=== PATIENT | female | born 1935 | race Caucasian/White ===

== ENCOUNTER → 2017-09-23 | Outpatient (CLI) | payer OTHER ==
[~2017-09-23] MED LIST: ACETAMINOPHEN325 M1 PO; ADVAIR 250-501 EACH INH; ADVIL100 M2 PO; AUGMENTIN 500-1 EACH PO; AZITHROMYCIN 2250 MG PO; COLACE100 MG PO; FOSAMAX 70 MG T70 MG PO; FOSAMAX5 MG PO; IBUPROFEN 200200 M1 PO; KEFLEX500 M1 PO; MICARDIS 20MG T20 M1 PO; MUCINEX600 MG PO; MULTIVITAMINS PO; NORCO 5-325 TA1 EACH PO; PREDNISONE 10 M10 MG PO; PROAIR HFA8.5 GM INH; PROTONIX 20 MG20 MG PO; SPIRIVA INH; TUSSIN400 MG PO; TYLENOL325 MG PO
== END ==
LOC: RAD 14:07
DX: Z12.31 Encounter for screening mammogram for malignant neoplasm of breast (principal)

== ENCOUNTER 2018-02-06 14:29 | Inpatient (IN) | payer OTHER ==
[~2018-02-06] VITALS: Ht 162.6 cm; Wt 49.9 kg
--- NOTE | ~2018-02-06 | HC ---
[facility] [place] [address] CONSULTATION Name: RICKEY PRESTON Garima Room #: 422-P [facility] IN .R.#: [id number] Admission: 02/06/18 Attend Phys: Jon Guadarrama MD Discharge: Date of : 34 Report #: [id number] THIS REPORT FOR: //name// CC: Jon Siu DATE OF SERVICE: 02/09/2018 HISTORY OF PRESENT ILLNESS: The patient is an 82-year-old white female who was admitted to [facility] after an episode of tripping and had a couple of falls. She was having problems with increased shortness of breath and a mild cough. She has a premorbid history of COPD for the last 10 years and has been using inhalers. She was evaluated by Pulmonary Medicine, noted to have central lobular emphysema, hypercapnic respiratory failure with bilateral lower lobe scarring and fibrosis along with concern regarding aspiration. She has been seen by speech therapy and they have her on a soft diet with nectar-thickened liquids. She is noted to have hnzy-xu-csgykhms pharyngeal dysphagia. She also has acute renal insufficiency along with acute respiratory failure. We are seeing her in rehabilitation medicine consultation. She has been placed on Solu-Medrol as well as IV antibiotics. PAST MEDICAL HISTORY: Includes appendectomy, arthritis, COPD, hypertension, gastric ulcer in 1990, past history of tobacco abuse, quitting in 2007; and GERD, osteoporosis. She had a right total hip replacement in 2013 and a right periprosthetic femur fracture with revision in 10/08/2013. HABITS: Noted above. Former smoker. No history of alcohol abuse. MEDICATIONS: Please see the full medication listing. These medications include her vitamins, herbals, and supplements. ALLERGIES: CODEINE. SOCIAL HISTORY: Lives in a house with her , 4 steps in. She has a walker and a cane; although, she typically did not utilize them. REVIEW OF SYSTEMS: No current complaints of chest pain, shortness of breath, or abdominal discomfort. PHYSICAL EXAMINATION: GENERAL: An 82-year-old pleasant, thin white female in no obvious distress. VITAL SIGNS: Last recorded temperature is 98.3, pulse 81, respirations 16, and blood pressure 112/63. NEUROLOGIC: She is alert and pleasant. She does follow basic 1 step commands. She is currently on 3 liters nasal cannula. Facies are symmetric. She has functional range of motion of both upper extremities with strength grade 4-/5. [address] [address] CONSULTATION Name: RICKEY PRESTON Room #: 422-P [facility] IN .#: [id number] Admission: 02/06/18 Attend Phys: Jon Guadarrama MD Discharge: Date of : 34 Report #: [id number] DTRs are trace to 1. In the lower extremities, there is no focal calf swelling, functional range of motion with strength grade 3+/5. DTRs are trace to 1. She is sit to stand with mod assist. She did ambulate 5 feet handheld assistance. She does have frequent losses of balance. ASSESSMENT: An 82-year-old white female with the following problem list: 1. Pulmonary rehabilitation. 2. Medical complexity with generalized debilitation. 3. Acute hypoxic respiratory failure. 4. Dysphagia, currently on nectar-thickened liquids. 5. Central lobular emphysema with hypercapnic respiratory failure. 6. Bilateral lower lobe scarring with fibrosis. 7. Acute renal insufficiency. 8. Question of urinary tract infection. 9. Leukocytosis. 10. Hypertension. 11. Remote history of tobacco abuse. PLAN: We are assessing the patient for a possible acute in-hospital inpatient rehabilitation stay. We will be glad to follow along with you. <ELECTRONICALLY SIGNED> By: Gerard Arambula MD 02/10/18 1440 1330 0259 Gerard Arambula MD /PMT
--- NOTE | ~2018-02-06 | HC ---
[facility] [place] [address] CONSULTATION Name: RICKEY PRESTON Room #: 422-P [facility] IN M.R.#: [id number] Admission: 02/06/18 Attend Phys: Jon Guadarrama MD Discharge: Date of : 34 Report #: [id number] THIS REPORT FOR: //name// CC: Jon Siu DATE OF SERVICE: 02/06/2018 REASON FOR CONSULTATION: COPD. IMPRESSION: 1. Central lobular emphysema. 2. Bilateral lower lobe scarring/fibrosis. 3. Possible urinary tract infection. 4. Weakness. 5. Question aspiration. 6. Leukocytosis. 7. Found to have low oxygen saturation. No ABG to correlate yet. PLAN: Aerosol therapy, incentive spirometry as D-dimer is elevated, but likely secondary more to falls than a definite pulmonary embolus. We will do venous Dopplers and VQ scan in the a.m. I did not hear any wheezing. We will hold off on corticosteroids. HISTORY OF PRESENT ILLNESS: An 82-year-old female who was brought in by because of recurrent falls and weakness. The patient denies shortness of breath. She does complain of occasional cough. No definite wheezing. Positive dyspnea on exertion. PAST MEDICAL HISTORY: Include chronic low back pain, COPD, dementia, hypertension, GERD and osteopenia. PAST SURGICAL HISTORY: Included appendectomy, cataract extraction and total hip arthroplasty by Dr. Lynn. FAMILY HISTORY: Heart disease. SOCIAL HISTORY: Positive tobacco quitting approximately 15 years ago. MEDICATIONS: Appear to have included Advair, alendronate, Namenda, ProAir and Spiriva. REVIEW OF SYSTEMS: The patient denies any dysuria. Please see above. She denies any chest pain or palpitations. She feels she is falling because of inattention. GERD, gastric ulcer. [facility] [address] [place] [address] CONSULTATION Name: RICKEY PRESTON Garima Room #: 422-P [facility] IN [facility]#: [id number] Admission: 02/06/18 Attend Phys: Jon Guadarrama MD Discharge: Date of : 34 Report #: [id number] LABORATORY DATA: BUN 36, creatinine 1.2 and GFR was 43. Troponin was less than 0.04. White count 17.6, hemoglobin 14.7, platelets 345 and bands 2. UA showed greater than 30 bacteria. REVIEW OF SYSTEMS: No fever, chills or night sweats. No chest pain or palpitation. No nausea or vomiting. PHYSICAL EXAMINATION: GENERAL: Very pleasant, lying in bed, eating. We discussed being upright when she eats. VITAL SIGNS: Temperature 97.5, pulse 98, respirations 16, BP 152/73 and on 1 liter sat was 94%. EYES: Negative icterus. NECK: Trachea midline. LUNGS: Showed no wheeze or rhonchi. HEART: Regular. Tender right chest. ABDOMEN: Bowel sounds present. EXTREMITIES: Showed no edema. Bruising noted. I did not see an obvious left upper lobe nodule that was seen on prior chest. We will follow closely with you. <ELECTRONICALLY SIGNED> By: Don Kay MD 02/08/18 1747 16 0648 Don Kay MD /nt
--- NOTE | ~2018-02-06 | EKG ---
[place] [address] [place] [address] ELECTROCARDIOGRAM REPORT Name: MOHANRICKEY L Room #: [facility]#: [id number] Admission: 02/06/18 Attend Phys: Discharge: Date of : 34 Report #: [id number] THIS REPORT FOR: //name// [facility] ED Test Date: 2018-02-06 Test Time: 15:10:30 Pat Name: RICKEY PRESTON Department: Room: Gender: F [employer]: STEVE : 1935 Requested By: Austin Mata Order Number: [id number] MD: Yg Ornelas Measurements Intervals [place] Rate: 101 P: 71 WA: 164 QRS: -60 QRSD: 106 T: 73 QT: 353 QTc: 458 Interpretive Statements Sinus tachycardia Atrial premature complexes Left anterior fascicular block Poor R wave progression Compared to ECG 09/13/2013 11:30:59 Ventricular premature complex(es) no longer present Electronically Signed On 02-06-2018 15:52:14 CDT by Yg Ornelas [email or web address] <ELECTRONICALLY SIGNED> By: Yg Ornelas MD, [facility] 02/06/18 1552 1510 09 Yg Ornelas MD, [facility] /EPI
[~2018-02-06 14:29] MED LIST changes: -AUGMENTIN 500-1 EACH PO; -AZITHROMYCIN 2250 MG PO; -COLACE100 MG PO; -KEFLEX500 M1 PO; -MUCINEX600 MG PO; -NORCO 5-325 TA1 EACH PO; -PREDNISONE 10 M10 MG PO; -PROTONIX 20 MG20 MG PO; -TYLENOL325 MG PO
[2018-02-06 14:30] VITALS: BP 131/59
[2018-02-06 15:34] LABS: HEMATOCRIT 44.1 % (37.0-47.0); HEMOGLOBIN 14.7 gm/dL (12.0-15.0); MCH 31.1 pg (26.0-34.0); MCHC 33.4 g/dL (28.0-37.0); PLATELET COUNT 345 thou/uL (150-400); RBC 4.74 mil/uL (4.20-5.00); RDW 14.4 % (10.5-14.5); WBC 17.6 thou/uL (4.0-11.0)
[2018-02-06 15:42] LABS: ANION GAP 7 mmol/L (7-16); BUN 36 mg/dL (7-18); CALCIUM 8.7 mg/dL (8.5-10.1); CHLORIDE 99 mmol/L (98-107); CO2 28 mmol/L (21-32); CREATININE 1.2 mg/dL (0.6-1.0); GLUCOSE 132 mg/dL (74-106); POTASSIUM 4.5 mmol/L (3.5-5.1); SODIUM 134 mmol/L (136-145)
[2018-02-06 15:53] LABS: ALBUMIN 2.9 g/dL (3.4-5.0); SGOT 18 U/L (15-37); SGPT 13 U/L (30-65); TOTAL BILIRUBIN 0.6 mg/dL (<0.1-1.0); TOTAL PROTEIN 7.6 g/dL (6.4-8.2); TROPONIN-I < 0.04 ng/mL (<0.06)
[2018-02-06 15:55] LABS: ABSOLUTE NEUTROPHILS 15.8 thou/uL (1.4-8.2)
[2018-02-06 17:06] LABS: URINE BLOOD NEGATIVE (Negative); URINE COLOR YELLOW; URINE GLUCOSE-RANDOM* NEGATIVE (Negative); URINE KETONES TRACE (Negative); URINE LEUKOCYTES NEGATIVE (Negative); URINE NITRITE NEGATIVE (Negative); URINE PROTEIN (DIPSTICK) 2+ (Negative); URINE SPECIFIC GRAVITY 1.025 (1.005-1.035)
[2018-02-06 17:08] LABS: URINE BILIRUBIN NEGATIVE (Negative); URINE CLARITY SL HAZY
[2018-02-06 17:18] LABS: BACTERIA >30 Many /HPF (None Seen); CASTS None Seen /LPF (None Seen); SQUAMOUS 4-10 Moderate /LPF (0-3); URINE RBC None Seen /HPF (0-2); URINE WBC 0-5 Rare /HPF (0-5)
[2018-02-06 17:19] LABS: AMORPHOUS URATES Many /LPF (None Seen)
[2018-02-06 17:49] VITALS: BP 103/79
[2018-02-06 19:33] VITALS: BP 152/73
[2018-02-06 20:00] VITALS: BP 115/63
[2018-02-07 04:00] VITALS: BP 119/58
[2018-02-07 05:41] LABS: HEMATOCRIT 39.1 % (37.0-47.0); HEMOGLOBIN 13.2 gm/dL (12.0-15.0); MCH 31.3 pg (26.0-34.0); MCHC 33.7 g/dL (28.0-37.0); MCV 92.7 fL (80.0-100.0); RBC 4.22 mil/uL (4.20-5.00); RDW 14.9 % (10.5-14.5); WBC 13.4 thou/uL (4.0-11.0)
[2018-02-07 05:44] LABS: CALCIUM 7.9 mg/dL (8.5-10.1); CREATININE 1.1 mg/dL (0.6-1.0); POTASSIUM 4.5 mmol/L (3.5-5.1)
[2018-02-07 07:34] VITALS: BP 116/65
[2018-02-07 11:56] LABS: BE(vivo) 1.2 mmol/L (-2 to +3); HCO3 27.2 mmol/L (22.0-26.0); PCO2 48.3 mmHg (35.0-45.0); PO2 72.9 mmHg (80.0-100.0); pH 7.368 (7.360-7.450); sO2 94.1 % (92.0-98.0)
[2018-02-07 15:45] VITALS: BP 95/80
[2018-02-07 19:20] VITALS: BP 101/60
[2018-02-08 03:40] VITALS: BP 117/50
[2018-02-08 04:50] LABS: HEMATOCRIT 33.9 % (37.0-47.0); HEMOGLOBIN 11.4 gm/dL (12.0-15.0); MCH 31.6 pg (26.0-34.0); MCHC 33.7 g/dL (28.0-37.0); MCV 93.7 fL (80.0-100.0); RBC 3.61 mil/uL (4.20-5.00); RDW 14.8 % (10.5-14.5); WBC 7.5 thou/uL (4.0-11.0)
[2018-02-08 05:02] LABS: CALCIUM 7.8 mg/dL (8.5-10.1); CREATININE 0.9 mg/dL (0.6-1.0); POTASSIUM 4.1 mmol/L (3.5-5.1)
[2018-02-08 15:38] VITALS: BP 101/63
[2018-02-08 19:50] VITALS: BP 133/81
[2018-02-09 03:50] VITALS: BP 109/63
[2018-02-09 08:30] VITALS: BP 112/63
[2018-02-09 15:50] VITALS: BP 93/70
[2018-02-09 20:20] VITALS: BP 95/55
[2018-02-09 23:50] VITALS: BP 129/71
[2018-02-10 04:21] VITALS: BP 136/65
[2018-02-10] MEDS ORDERED: PREDNISONE 10 M10 MG PO (08:41)
[2018-02-10] MEDS ORDERED: KEFLEX500 M1 PO (08:42)
[2018-02-10] MEDS ORDERED: AZITHROMYCIN 2250 MG PO (08:42)
[2018-02-10 09:07] VITALS: BP 86/70
== END 2018-02-10 14:30 | DRG 177 ==
LOC: ER 14:29 → EROBS 17:29 → 4E 17:29
PROVIDERS: Hospitalist; Internal Medicine Pulmonary Disease; Physician Assistant
DX: J69.0 Pneumonitis due to inhalation of food and vomit (principal); J96.01 Acute respiratory failure with hypoxia; J96.02 Acute respiratory failure with hypercapnia; J44.1 Chronic obstructive pulmonary disease with (acute) exacerbation; N17.9 Acute kidney failure, unspecified; N39.0 Urinary tract infection, site not specified; M19.90 Unspecified osteoarthritis, unspecified site; I10 Essential (primary) hypertension; K21.9 Gastro-esophageal reflux disease without esophagitis; M81.0 Age-related osteoporosis without current pathological fracture; J84.10 Pulmonary fibrosis, unspecified; F03.90 Unspecified dementia, unspecified severity, without behavioral disturbance, psychotic disturbance, mood disturbance, and anxiety; Z96.641 Presence of right artificial hip joint; R29.6 Repeated falls; W01.0XXA Fall on same level from slipping, tripping and stumbling without subsequent striking against object, initial encounter; M62.84 Sarcopenia; Y93.89 Activity, other specified; Y92.009 Unspecified place in unspecified non-institutional (private) residence as the place of occurrence of the external cause; Y99.8 Other external cause status; Z87.19 Personal history of other diseases of the digestive system; Z87.81 Personal history of (healed) traumatic fracture; Z87.891 Personal history of nicotine dependence; Z90.49 Acquired absence of other specified parts of digestive tract; Z79.51 Long term (current) use of inhaled steroids; Z79.899 Other long term (current) drug therapy; Z88.5 Allergy status to narcotic agent; Z82.49 Family history of ischemic heart disease and other diseases of the circulatory system
CPT/HCPCS: 10183

== ENCOUNTER 2018-02-10 13:08 | Inpatient (IN) | payer OTHER ==
[~2018-02-10] VITALS: Ht 162.6 cm; Wt 49.4 kg
--- NOTE | ~2018-02-10 | PATH ---
[facility] [address] [place] [address] PATHOLOGY RPT PROCEDURE Name: RICKEY PRESTON Room #: 509-P [facility] IN .R.#: [id number] Admission: 02/10/18 Date of : 34 Discharge: 02/24/18 Report #: [id number] Path Case #: [id number] Note [facility] Accession Number: [id number] TESTS RESULT FLAG UNITS REF RANGE LAB Clinician Provided Cytology Information No. of containers..01 Other (Miscellaneous) Source: SPUTUM DIAGNOSIS: 02 SPUTUM NEGATIVE FOR MALIGNANT CELLS. PULMONARY MACROPHAGES PRESENT, INDICATIVE OF LOWER RESPIRATORY TRACT SAMPLING. SCANT CELLULARITY. FUNGAL ORGANISMS MORPHOLOGICALLY CONSISTENT WITH "ALEXANDRA" SPECIES ARE PRESENT. Signed out by: 02 Kelsey Alicia MD, Pathologist NPI- [id number] Performed by: 03 Zeinab Ku, Sales And Marketing Representative ([facility]) Gross description: 01 1 ML, YELLOW, THICK /LCS FLAG LEGEND: L-Low Normal,H-High Normal,LL-Alert Low,HH-Alert High <-Panic Low,>-Panic High,A-Abnormal,AA-Critical Abnormal Performed at: [address] [place] [address] Ronaldo Mckeon MD, [address] [address] Kelsey Alicia MD, 03 [facility] [address] [address] Charanjit Wood MD, Performed at: [address], [place], [place] [id number] MD Ronaldo Mckeon MD Phone: [phone]
--- NOTE | ~2018-02-10 | HC ---
[facility] [place] [address] CONSULTATION Name: RICKEY PRESTON Room #: 509-P [facility] IN .R.#: [id number] Admission: 02/10/18 Attend Phys: Gerard Arambula MD Discharge: Date of : 34 Report #: [id number] THIS REPORT FOR: //name// CC: Gerard Siu DATE OF SERVICE: 02/14/2018 NEUROBEHAVIORAL STATUS EXAMINATION ATTENDING PHYSICIAN: Gerard Arambula M.D. OLDER ADULT SOCIAL WORK SPECIALIST: Jacky De Los Santos, PhD CLINICAL PRESENTATION: The patient is an 82-year-old female admitted to the [facility] Rehabilitation Unit for comprehensive inpatient rehabilitation program to improve functional mobility, activities of daily living and self-care and mental status secondary to deficits from acute hypoxic respiratory failure and requirement of increased pulmonary rehabilitation. Her diagnoses on admission include medical complexity and generalized debilitation, dysphagia, central lobular emphysema with hypercapnic respiratory failure, bilateral lower lobe scarring with fibrosis, acute renal insufficiency, urinary tract infection, leukocytosis, hypertension and remote history of tobacco abuse. The patient is reported to have been at home with her , son and grandson when her behavior deteriorated to the extent of diminished activity and severe fatigue. Prior to this most recent admission, she had been living at home with increasing assistance from her family. The patient was unable to manage her medication and had not driven for 4 years. Her behavior is described as having deteriorated significantly following a hip surgery about 4 years ago. The patient is described as requiring assistance for personal and instrumental activities of daily living. She is lacking insight into the severity of her deficits. Problems in her home have included poor ability to manage ADL's. She has not been showering and has been requiring increasing encouragement to maintain activity and personal hygiene. Her grandson indicates that while her son is in the home, he has a longstanding history of substance abuse and is very isolative. The primary help he provides is meal preparation and the availability of physical assistance if necessary; however, the son is not reported to be actively involved in problem solving the current extent of supervision and the current problems they are having in the management of her behavior. The patient is a college graduate with a degree in chemistry. 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 She had two brothers, one sister and two children. As indicated, her son is living with her in [place] and the other is living in [place]. Her primary support is provided by grandson and granddaughter. TECHNIQUES UTILIZED: Clinical interview, review of medical records, staff consultation and behavioral observation, mini mental status exam 2 standard version, clock drawing and category fluency assessment and an interview with grandson and . EXAMINATION FINDINGS: The patient was alert and cooperative with the assessment. She lacks insight into her deficits. She does not report difficulty with sleep, appetite, memory or word finding. She also denies depression and anxiety. Her grandson indicates that the patient will have many evenings where she is up throughout the night and does not sleep. Additionally, her appetite is described as very poor. Deficits in memory, planning and problem solving are also noted. Her behavior has become increasingly sedentary with very poor hygiene and personal grooming. Her performance on the MMSE 2 brief version is extremely low with a raw score of 10/16. She was 3/3 for initial registration and 4/5 for orientation to time, 3/[address] and 0/3 for immediate recall of 3 items after a brief time delay and distraction. She also utilized the orientation board to assist with general orientation to date content. Her performance improved on the MMSE 2 standard version to a raw score of 23/30. She was 5/5 for serial sevens, 2/2 for naming, 1/1 for repetition and 3/3 for comprehension. She was able to read and follow a single command and write a sentence. The patient was unable to copy a simple geometric design. She obtained a raw score of 23/30, which is a T score of 32 and at the 4th percentile suggesting mild to moderate impairment. Category fluency was extremely low with a raw score 6, which is a T score of 20. The patient had mild difficulty with clock drawing in regard to hand placement. The patient is presenting with deficits in memory, general orientation, insight and judgment. Severe impairment in executive functioning along with depression are suggested. DIAGNOSTIC IMPRESSION: Major neurocognitive disorder (dementia), unspecified, with decreased insight and intermittent oppositional behavior -- extent to be determined, likely in the moderate to severe range. Unspecified depressive disorder. [facility] [address] [place] [address] CONSULTATION Name: RICKEY PRESTON Room #: 509-P [facility] IN M.R.#: [id number] Admission: 02/10/18 Attend Phys: Gerard Arambula MD Discharge: Date of : 34 Report #: [id number] RECOMMENDATIONS: The patient would benefit from the use of an antidepressant at bedtime that will assist with sleep and appetite, e.g., Remeron. Decreased insight into her deficits places her at an increased safety risk. Assistance will be needed for the management of medication, finances and nutrition. Increased assistance in the home may also be necessary upon her discharge. Her grandson indicates that the tends to minimize the severity of her deficits. Following her discharge, the patient may benefit from a workup for neurodegenerative disorder. Neuropsychological testing and Neurology consult is suggested. Thank you very much for allowing me to provide the consultation on this patient. <ELECTRONICALLY SIGNED> By: Jacky De Los Santos, PhD 02/15/18 1432 1500 24 Jacky De Los Santos, PhD /nt
--- NOTE | ~2018-02-10 | H ---
[facility] [place] [address] HISTORY AND PHYSICAL Name: RICKEY PRESTON Room #: 509-P [facility] IN M.R.#: [id number] Admission: 02/10/18 Attend Phys: Gerard Arambula MD Discharge: 02/24/18 Date of : 34 Report #: [id number] THIS REPORT FOR: //name// CC: Gerard Gomezmegan DATE OF SERVICE: 02/10/2018 HISTORY OF PRESENT ILLNESS: The patient is an 82-year-old white female who was originally admitted to [facility] on 02/06/2018, after an episode of tripping and had a couple of falls. She was noted to have problems with increased shortness of breath and a mild cough. She has a premorbid history of COPD for the last 10 years and had been using inhalers. She was evaluated by Pulmonary Medicine, noted to have central lobular emphysema, hypercapnic respiratory failure with bilateral lower lobe scarring and fibrosis along with concern regarding aspiration. She was seen by speech therapy and they initially placed on a soft diet with nectar thickened liquids. She is continuing on this diet at this time. She also was noted to have acute renal insufficiency along with acute respiratory failure. She was placed on IV Solu-Medrol as well as IV antibiotics. She has now been transferred for acute in-hospital inpatient rehabilitation. She has pulmonary rehabilitation needs with medical complexity with generalized debilitation. PAST MEDICAL HISTORY: Significant for an appendectomy, arthritis, COPD, hypertension, gastric ulcer in 1990. Past history of tobacco abuse, quitting in 2007, GERD, osteoporosis, right total hip replacement in 2013, and a right periprosthetic femur fracture with revision 10/08/2013. HABITS: Noted above. Former smoker. No history of alcohol abuse. MEDICATIONS: Please see the full medication listing. These medications also include her vitamins, herbals and supplements. ALLERGIES: CODEINE. SOCIAL HISTORY: Lives with her , house, 4 steps in. She has a walker and a cane, although she typically did not use them. She was not on nasal prong O2 premorbidly. REVIEW OF SYSTEMS: No current complaints of chest pain, no shortness of breath, abdominal discomfort. No focal extremity pain complaints. OBJECTIVE: GENERAL: An 82-year-old white female, in no obvious distress. VITAL SIGNS: Last recorded temperature is 97, pulse 100, respirations 20, blood pressure 158/71. [address] [address] HISTORY AND PHYSICAL Name: RICKEY PRESTON Room #: 509-P [facility] IN [facility]#: [id number] Admission: 02/10/18 Attend Phys: Gerard Arambula MD Discharge: 02/24/18 Date of : 34 Report #: [id number] HEAD, EYES, EARS, NOSE, AND THROAT: The patient is alert, pleasant. She is currently on nasal prong O2, 3 liters. She follows basic 1 step commands without difficulty. CHEST: Some decreased breath sounds diffusely. CARDIOVASCULAR: Regular rate and rhythm. ABDOMEN: Bowel sounds positive, nontender. GENITOURINARY AND RECTAL: Deferred. She is of slender build. EXTREMITIES: She has functional range of motion of both upper extremities. Strength is grade 4-/5. DTRs are trace to 1. In the lower extremities, there is no focal calf swelling, functional range of motion with strength grade 3+/5. DTRs are trace to 1. Functionally, she is transferring with min assist, gait, and mod assist short distances. ASSESSMENT: An 82-year-old white female with the following problem list: 1. Pulmonary rehabilitation. 2. Medical complexity with generalized debilitation. 3. Acute hypoxic respiratory failure. 4. Dysphagia, continuing on nectar thickened liquids. 5. Central lobular emphysema with hypercapnic respiratory failure. 6. Bilateral lower lobe scarring with fibrosis. 7. Acute renal insufficiency. 8. Question of urinary tract infection. 9. Leukocytosis. 10. Hypertension. 11. Remote history of tobacco abuse. PLAN: The patient is admitted for acute in-hospital inpatient rehabilitation. From a postadmission physician evaluation perspective, there are no relevant changes since the preadmission screening. Please see the above review of prior and current medical and functional conditions and comorbidities. Please see the patient's previous and current functional status. As far as risk of complications, the patient has multiple medical comorbidities as noted above. Initial plan of care involves the interdisciplinary acute inpatient rehabilitation program with goal of maximizing her functional independence, so that she can hopefully return back to her prior living situation. Measurable functional goals would be for her to become modified independent with transfers, mobility and ADLs, so that she can return back to the home setting. We are also having speech therapy evaluate regarding her swallowing with her dysphagia. She will have the interdisciplinary acute rehab team involved. Her prognosis is reasonably good with estimated length of stay probably at least 10 days to 2 weeks pending progress. Potential barriers would include her multiple medical comorbidities and decreased functional status. The patient meets diagnostic criteria for an acute in-hospital inpatient rehabilitation stay. She meets the medical necessity criteria and we will have the lifestyle consultant physicians continue to follow including Internal Medicine as well [address] [address] HISTORY AND PHYSICAL Name: RICKEY PRESTON Room #: 509-P [facility] IN .R.#: [id number] Admission: 02/10/18 Attend Phys: Gerard Arambula MD Discharge: 02/24/18 Date of : 34 Report #: [id number] as Pulmonary Medicine and geriatrics is involved. She does have the tolerance for an acute inpatient rehabilitation stay and has appropriate discharge goals back to the home setting. <ELECTRONICALLY SIGNED> By: Gerard Arambula MD 02/27/18 1453 0752 0933 Gerard Arambula MD /[facility]
--- NOTE | ~2018-02-10 | PLAN ---
[facility] [place] [address] REHAB UNIT PLAN OF CARE Name: RICKEY PRESTON Room #: 509-P [facility] IN M.R.#: [id number] Admission: 02/10/18 Attend Phys: Gerard Arambula MD Discharge: 02/24/18 Date of : 34 Report #: [id number] THIS REPORT FOR: //name// CC: Gerard Duggan [facility] DATE OF SERVICE: 02/13/2018 PROGRESS NOTE/OVERALL PLAN OF CARE SUBJECTIVE: The patient is seen back today in followup. She is in no distress. Last recorded temperature 36.9, pulse 89, respirations 18, blood pressure 165/83. She is pleasant. She is currently on 2 liters nasal cannula. Transfers are contact guard with gait min assist 150 feet with a front-wheeled walker. In occupational therapy, lower body dressing is min assist. In speech therapy, she is on a mechanical soft diet and is continuing on the nectar thickened liquids. ASSESSMENT: 1. Pulmonary rehabilitation. 2. Medical complexity with generalized debilitation. 3. Acute hypoxic respiratory failure. 4. Dysphagia, continuing on nectar thickened liquids. 5. Central lobular emphysema with hypercapnic respiratory failure. 6. Bilateral lower lobe scarring with fibrosis. 7. Acute renal insufficiency. 8. Question of urinary tract infection. 9. Leukocytosis. 10. Hypertension. PLAN: The overall plan of care is based on the preadmission screen, post-admission physician evaluation and information garnered from therapy assessments. 1. Estimated length of stay is probably around 10 days. 2. Medical prognosis is reasonably good. 3. Anticipated interventions include the interdisciplinary acute inpatient rehabilitation program with PT and OT, rehab nursing assisting regarding medication management, skin care prophylaxis, bowel and bladder issues and nursing education. Case management is involved as well as the interdisciplinary rehabilitation team. The cisco consultant physicians are involved as well. 4. Anticipated functional outcomes would be for the patient to ideally become modified independent at least at the walker level to get back home. She was not on oxygen premorbidly. 5. Discharge destination is to return back home with . 6. Expected therapy by discipline includes PT and OT and Speech 1 hour per day [address] [address] REHAB UNIT PLAN OF CARE Name: RICKEY PRESTON Room #: 509-P [facility] IN .R.#: [id number] Admission: 02/10/18 Attend Phys: Gerard Arambula MD Discharge: 02/24/18 Date of : 34 Report #: [id number] each 5 days a week throughout the duration of the acute inpatient rehabilitation stay. <ELECTRONICALLY SIGNED> By: Gerard Arambula MD 02/27/18 1515 [id number] Gerard Arambula MD /nt
--- NOTE | ~2018-02-10 | EKG ---
[address] [address] ELECTROCARDIOGRAM REPORT Name: RICKEY PRESTON Garima Room #: 509-P ADM IN M.R.#: [id number] Admission: 02/10/18 Attend Phys: Gerard Arambula MD Discharge: Date of : 34 Report #: [id number] THIS REPORT FOR: //name// [facility] Test Date: 2018-02-20 Test Time: 06:49:34 Pat Name: RICKEY PRESTON Department: Room: 509 Gender: F Twister Tender: MONICA : 1935 Requested By: Don Kay Order Number: [id number] MD: Yg Ornelas Measurements Intervals [place] Rate: 88 P: 61 NH: 159 QRS: -61 QRSD: 103 T: 63 QT: 366 QTc: 443 Interpretive Statements Sinus rhythm Atrial premature complex Left anterior fascicular block Anteroseptal infarct, old Baseline wander in lead(s) II,III,aVF Compared to ECG 02/06/2018 15:10:30 Sinus tachycardia no longer present Electronically Signed On 02-20-2018 8:34:10 CDT by Yg Ornelas [email or web address] <ELECTRONICALLY SIGNED> By: Yg Ornelas MD, [facility] 02/20/18 0834 0649 [id number] Yg Ornelas MD, [facility] /EPI
[~2018-02-10 13:08] MED LIST changes: +AZITHROMYCIN 2250 MG PO; +KEFLEX500 M1 PO; +PREDNISONE 10 M10 MG PO
[2018-02-10 16:00] VITALS: BP 172/81
[2018-02-10 19:43] VITALS: BP 158/71
[2018-02-11 04:14] LABS: HEMATOCRIT 32.4 % (37.0-47.0); HEMOGLOBIN 10.8 gm/dL (12.0-15.0); MCH 31.3 pg (26.0-34.0); MCHC 33.3 g/dL (28.0-37.0); RBC 3.45 mil/uL (4.20-5.00); RDW 14.8 % (10.5-14.5); WBC 8.5 thou/uL (4.0-11.0)
[2018-02-11 04:17] LABS: CALCIUM 8.1 mg/dL (8.5-10.1); CREATININE 1.1 mg/dL (0.6-1.0); POTASSIUM 4.6 mmol/L (3.5-5.1)
[2018-02-11 07:30] VITALS: BP 146/73
[2018-02-11 19:02] VITALS: BP 118/73
[2018-02-12 08:00] VITALS: BP 135/75
[2018-02-12 19:52] VITALS: BP 165/83
[2018-02-13 07:45] VITALS: BP 166/88
[2018-02-13 20:28] VITALS: BP 147/73
[2018-02-14 08:29] VITALS: BP 140/75
[2018-02-14 20:30] VITALS: BP 155/71
[2018-02-15 20:14] VITALS: BP 157/80
[2018-02-16 07:15] VITALS: BP 183/100
[2018-02-16 19:15] VITALS: BP 138/72
[2018-02-17 06:36] LABS: HEMATOCRIT 39.2 % (37.0-47.0); HEMOGLOBIN 13.1 gm/dL (12.0-15.0); MCHC 33.3 g/dL (28.0-37.0); PLATELET COUNT 352 thou/uL (150-400); RBC 4.21 mil/uL (4.20-5.00); RDW 15.3 % (10.5-14.5); WBC 6.6 thou/uL (4.0-11.0)
[2018-02-17 07:03] LABS: ANION GAP < 0 mmol/L (7-16); BUN 30 mg/dL (7-18); CALCIUM 8.5 mg/dL (8.5-10.1); CHLORIDE 102 mmol/L (98-107); CO2 38 mmol/L (21-32); CREATININE 0.9 mg/dL (0.6-1.0); GLUCOSE 114 mg/dL (74-106); MAGNESIUM 2.2 mg/dL (1.8-2.4); POTASSIUM 5.5 mmol/L (3.5-5.1); SODIUM 139 mmol/L (136-145)
[2018-02-17 07:20] VITALS: BP 147/64
[2018-02-17 07:27] LABS: ABSOLUTE NEUTROPHILS 5.3 thou/uL (1.4-8.2)
[2018-02-17 07:28] LABS: ANISOCYTOSIS 1+; POIKILOCYTOSIS SLIGHT
[2018-02-17 20:25] VITALS: BP 140/76
[2018-02-18 04:02] LABS: CALCIUM 7.7 mg/dL (8.5-10.1); CREATININE 1.1 mg/dL (0.6-1.0); POTASSIUM 4.7 mmol/L (3.5-5.1)
[2018-02-18 08:00] VITALS: BP 159/80
[2018-02-18 19:55] VITALS: BP 147/67
[2018-02-19 07:25] VITALS: BP 151/63
[2018-02-19 20:09] VITALS: BP 146/83
[2018-02-20 07:15] LABS: HEMATOCRIT 41.3 % (37.0-47.0); HEMOGLOBIN 13.6 gm/dL (12.0-15.0); MCH 31.2 pg (26.0-34.0); MCV 94.5 fL (80.0-100.0); PLATELET COUNT 336 thou/uL (150-400); RBC 4.37 mil/uL (4.20-5.00); RDW 15.6 % (10.5-14.5); WBC 12.8 thou/uL (4.0-11.0)
[2018-02-20 07:30] VITALS: BP 141/71
[2018-02-20 07:58] LABS: ALBUMIN 2.9 g/dL (3.4-5.0); ANION GAP 4 mmol/L (7-16); BUN 27 mg/dL (7-18); CALCIUM 8.2 mg/dL (8.5-10.1); CHLORIDE 101 mmol/L (98-107); CO2 34 mmol/L (21-32); CREATININE 0.7 mg/dL (0.6-1.0); GLUCOSE 121 mg/dL (74-106); POTASSIUM 4.1 mmol/L (3.5-5.1); SGOT 27 U/L (15-37); SGPT 44 U/L (30-65); SODIUM 139 mmol/L (136-145); TOTAL BILIRUBIN 0.4 mg/dL (<0.1-1.0); TOTAL PROTEIN 6.3 g/dL (6.4-8.2); TROPONIN-I < 0.04 ng/mL (<0.06)
[2018-02-20 08:08] LABS: ABSOLUTE NEUTROPHILS 10.5 thou/uL (1.4-8.2); ANISOCYTOSIS 1+; METAMYELOCYTES 2 %; MYELOCYTES 1 %
[2018-02-20 19:51] VITALS: BP 114/67
[2018-02-21 07:50] VITALS: BP 143/71
[2018-02-21 21:33] VITALS: BP 152/74
[2018-02-22 07:35] VITALS: BP 128/66
[2018-02-22 21:00] VITALS: BP 149/77
[2018-02-23 06:24] LABS: ABSOLUTE NEUTROPHILS 10.2 thou/uL (1.4-8.2); BASOPHILS 0.2 % (0.0-2.0); HEMATOCRIT 37.6 % (37.0-47.0); HEMOGLOBIN 12.6 gm/dL (12.0-15.0); LYMPHOCYTES 4.2 % (24.0-44.0); MCH 30.8 pg (26.0-34.0); MCHC 33.4 g/dL (28.0-37.0); MCV 92.4 fL (80.0-100.0); MONOCYTES 6.1 % (1.0-8.0); POLYS 89.5 % (36.0-66.0); RBC 4.07 mil/uL (4.20-5.00); RDW 15.3 % (10.5-14.5); WBC 11.4 thou/uL (4.0-11.0)
[2018-02-23 06:32] LABS: PLATELET COUNT 203 thou/uL (150-400)
[2018-02-23 06:35] LABS: CALCIUM 8.1 mg/dL (8.5-10.1); CREATININE 0.8 mg/dL (0.6-1.0); MAGNESIUM 2.1 mg/dL (1.8-2.4); POTASSIUM 4.4 mmol/L (3.5-5.1)
[2018-02-23 07:51] VITALS: BP 146/42
[2018-02-23 15:25] VITALS: BP 146/42
[2018-02-23 19:16] VITALS: BP 101/62
[2018-02-24 07:30] VITALS: BP 131/66
[2018-02-24] MEDS ORDERED: AUGMENTIN 500-1 EACH PO (10:15)
[2018-02-24] MEDS ORDERED: COLACE100 MG PO (10:15)
[2018-02-24] MEDS ORDERED: MUCINEX600 MG PO (10:15)
[2018-02-24] MEDS ORDERED: PREDNISONE 10 M10 MG PO (10:16)
[2018-02-24] MEDS ORDERED: PROTONIX 20 MG20 MG PO (10:20)
[2018-02-24] MEDS ORDERED: TYLENOL325 MG PO (10:23)
[2018-02-24 10:37] VITALS: BP 146/42
[2018-02-24 15:49] VITALS: BP 146/42
== END 2018-02-24 17:04 | disposition home health service (06) | DRG 947 ==
LOC: ENTRNSPT 02-24 15:54
PROVIDERS: Nurse Practitioner; Nurse Practitioner Family
DX: R53.81 Other malaise (principal); J96.01 Acute respiratory failure with hypoxia; J96.02 Acute respiratory failure with hypercapnia; J69.0 Pneumonitis due to inhalation of food and vomit; J44.1 Chronic obstructive pulmonary disease with (acute) exacerbation; N39.0 Urinary tract infection, site not specified; N17.9 Acute kidney failure, unspecified; J43.2 Centrilobular emphysema; M19.90 Unspecified osteoarthritis, unspecified site; I10 Essential (primary) hypertension; K21.9 Gastro-esophageal reflux disease without esophagitis; M81.0 Age-related osteoporosis without current pathological fracture; Z96.641 Presence of right artificial hip joint; N28.9 Disorder of kidney and ureter, unspecified; R13.10 Dysphagia, unspecified; D72.829 Elevated white blood cell count, unspecified; F03.90 Unspecified dementia, unspecified severity, without behavioral disturbance, psychotic disturbance, mood disturbance, and anxiety; B96.89 Other specified bacterial agents as the cause of diseases classified elsewhere; J84.10 Pulmonary fibrosis, unspecified; E87.5 Hyperkalemia; Z87.81 Personal history of (healed) traumatic fracture; Z90.49 Acquired absence of other specified parts of digestive tract; Z87.891 Personal history of nicotine dependence; Z88.6 Allergy status to analgesic agent
CPT/HCPCS: 10112

== ENCOUNTER → 2018-03-05 | Outpatient (CLI) | payer OTHER ==
[~2018-03-05] MED LIST changes: +AUGMENTIN 500-1 EACH PO; +COLACE100 MG PO; +MUCINEX600 MG PO; +PROTONIX 20 MG20 MG PO; +TYLENOL325 MG PO
== END ==
LOC: RAD 12:37
DX: J43.8 Other emphysema (principal)

== ENCOUNTER → 2019-01-21 | Outpatient (CLI) | payer OTHER ==
[~2019-01-21] MED LIST changes: +NORCO 5-325 TA1 EACH PO
== END ==
LOC: RAD 13:38
DX: R92.8 Other abnormal and inconclusive findings on diagnostic imaging of breast (principal)

== ENCOUNTER 2019-05-27 14:50 | Emergency (ER) | payer OTHER ==
[~2019-05-27] VITALS: Ht 167.6 cm; Wt 54.4 kg
[2019-05-27 15:42] LABS: CALCIUM 8.6 mg/dL (8.5-10.1); CREATININE 1.2 mg/dL (0.6-1.0)
[2019-05-27 15:48] LABS: ALBUMIN 3.1 g/dL (3.4-5.0); TOTAL BILIRUBIN 1.1 mg/dL (<0.1-1.0); TOTAL PROTEIN 6.5 g/dL (6.4-8.2)
[2019-05-27 15:54] LABS: ABSOLUTE NEUTROPHILS 8.6 thou/uL (1.4-8.2); BASOPHILS 0.3 % (0.0-2.0); EOSINOPHILS 0.1 % (0.0-3.0); HEMATOCRIT 40.8 % (37.0-47.0); HEMOGLOBIN 13.6 gm/dL (12.0-15.0); LYMPHOCYTES 9.5 % (24.0-44.0); MCH 31.3 pg (26.0-34.0); MCHC 33.3 g/dL (28.0-37.0); MONOCYTES 5.3 % (1.0-8.0); PLATELET COUNT 246 thou/uL (150-400); POLYS 84.8 % (36.0-66.0); RBC 4.34 mil/uL (4.20-5.00); RDW 15.1 % (10.5-14.5); WBC 10.1 thou/uL (4.0-11.0)
[2019-05-27 16:37] VITALS: BP 135/66
== END 2019-05-27 16:45 | disposition home or self-care (01) ==
LOC: ER 14:50
PROVIDERS: Emergency Medicine
DX: S42.291A Other displaced fracture of upper end of right humerus, initial encounter for closed fracture (principal); J44.9 Chronic obstructive pulmonary disease, unspecified; K21.9 Gastro-esophageal reflux disease without esophagitis; M81.0 Age-related osteoporosis without current pathological fracture; Z88.5 Allergy status to narcotic agent; Z90.49 Acquired absence of other specified parts of digestive tract; Z86.2 Personal history of diseases of the blood and blood-forming organs and certain disorders involving the immune mechanism; Z87.891 Personal history of nicotine dependence; Z96.641 Presence of right artificial hip joint; W18.39XA Other fall on same level, initial encounter; Y92.89 Other specified places as the place of occurrence of the external cause; Y93.89 Activity, other specified; Y99.8 Other external cause status

== ENCOUNTER 2019-05-31 11:31 | Inpatient (IN) | payer OTHER ==
[~2019-05-31] VITALS: Ht 162.6 cm; Wt 52.6 kg
--- NOTE | ~2019-05-31 | HC ---
[facility] [place] [address] CONSULTATION Name: RICKEY PRESTON Room #: 430-P [facility] IN M.R.#: [id number] Admission: 05/31/19 ������������������ Attend Phys: Itz Busch MD Discharge: ������������������ Date of : 34 Report #: [id number] THIS REPORT FOR: //name// CC: Itz Duggan [facility] DATE OF SERVICE: 05/31/2019 CHIEF COMPLAINT: Right proximal humerus fracture. HISTORY OF PRESENT ILLNESS: This is an 83-year-old patient with history of being seen in the Emergency Room on 05/27/2019 status post a fall injuring her right upper extremity. She was diagnosed with a humeral neck fracture and placed into a sling and was to follow up for further management. However, they are having increasing difficulty at home with her ambulating and she was subsequently admitted today for further management. PAST MEDICAL HISTORY: Significant for COPD, hypertension, gastric ulcer disease. ALLERGIES: CODEINE. VITAL SIGNS: Notes a temperature of 97.7, pulse 78, respiratory rate is 18, blood pressure is 115/68. LABORATORY STUDIES: Benign. X-rays noted a humeral neck fracture with some anterior displacement. PAST SURGICAL HISTORY: Significant for an appendectomy, a right total hip in 2013 and a periprosthetic femur fracture in 2013. SOCIAL HISTORY: Significant for cigarettes in the past. REVIEW OF SYSTEMS: As above. PHYSICAL EXAMINATION: GENERAL: Notes an alert, oriented patient, in no apparent distress. EXTREMITIES: Examination of the patient's right upper extremity notes pain with any range of motion through her right upper extremity. She is tender at her proximal humerus. She does have some ecchymosis distally in her arm. She otherwise is neurovascularly intact. X-rays of the right upper extremity again notes the humeral neck fracture. IMPRESSION: Right humeral neck fracture with some anterior displacement. [address] [address] CONSULTATION Name: RICKEY PRESTON Garima Room #: 430-P [facility] IN [facility].#: [id number] Admission: 05/31/19 ������������������ Attend Phys: Itz Busch MD Discharge: ������������������ Date of : 34 Report #: [id number] PLAN: Will be to continue with conservative management in the form of a sling and/or a shoulder immobilizer. We will continue with this course of treatment. I will follow along with you. Thank you for allowing me to participate in the care of this pleasant patient. ��������������������������������������������� ���������������������������������������� By: ��������������������������������������������� 2033 0511 Yfn Ponce MD /nt
--- NOTE | ~2019-05-31 | EMS ---
[address] [address] EMS Patient Care Report Name: RICKEY PRESTON Room #: 430-P ADM IN M.R.#: [id number] Admission: 05/31/19 ������������������ Attend Phys: Itz Busch MD Discharge: ������������������ Date of : 34 Report #: [id number] THIS REPORT FOR: //name// Report Transmitted: 06/03/2019 08:56 EMS Care Summary [facility] MED-ACT Incident [id number] @ 05/31/2019 10:46 Incident Location [address] [place] [address] Patient RICKEY PRESTON Female, 83 Years 1935 Patient Address [address] [place] [address] Patient History Chronic Obstructive Pulmonary Disease (COPD), Patient Allergies Codeine, Patient Medications Other, Prednisone, Oxygen, Pantoprazole, Albuterol, Fluticasone, Alendronate, Chief Complaint "I'm fine!" Disposition Transported No Lights/[place] Reason Sick Person Transported To [facility] Narrative Dispatched to a C3 weakness. On arrival Lucien LINARES reports the following: patient fell last Friday. On 05/27 she was transported to [facility] and dx'd with a right humeral head fracture then discharged home. Today EMS was called because patient is weak and cannot care for herself. Family is hopeful patient [address] [address] EMS Patient Care Report Name: RICKEY PRESTON Room #: 430-P [facility] IN .R.#: [id number] Admission: 05/31/19 ������������������ Attend Phys: Itz Busch MD Discharge: ������������������ Date of : 34 Report #: [id number] somewhere that can care for her. Patient offers no complaint at this time. Lalito reports patient is total care. He is lifting patient when she needs moved. Patient is currently sleeping on a sofa. She isn't leaving the sofa even for the bathroom. Patient found supine on the sofa with [place] FD at her side. A open, B non labored, C s/r radial. Alert to person and place. Report from LFD including HPI, PE, PMH, V/S. Continue oxygen. Sheet drag to move patient to the cot. Secure to the cot. Move to MICU. Transport to [facility]. Monitor V/S and ECG. 12 lead. bG. Biocom to [facility]. Sheet drag to move patient to ED bed 2. Report given to ROSALES Yee. Patient condition unchanged. Initial Vitals @11:19P: 81,R: 16,BP: 130/93,Pain: 0/10,SpO2: 100, @PTAP: 85,R: 16,BP: 117/64,SpO2: 86, @11:04P: 62,R: 18,BP: 130/86,Pain: 0/10,GCS: 14,Glucose: 102,SpO2: 100,Revised Trauma: 12,WI Suspected: false Assessments @11:00MENTAL:Confused,Time Oriented,Event Oriented,SKIN:HEENT:Head/Face: No Abnormalities,LUNG SOUNDS:General: No Abnormalities,ABDOMEN:General: No Abnormalities,PELVIS//GI:EXTREMITIES:Left Leg: Other,Right Arm: Other,Left Arm: Other,Right Leg: Other,PULSE:NEURO: Impression Generalized Weakness Procedures @11:1312-Lead ECG@PTAOxygen FlowRate: 3 Device: CO2 Nasal Cannula Response: ImprovedSucceeded Timeline SLEEVE FIXER,Oxygen FlowRate: 3 Device: CO2 Nasal Cannula Response: ImprovedSucceeded, SLEEVE FIXER,BP: 117/64 M,PULSE: 85,RR: 16 R,SPO2: 86 Ox,ETCO2: ,BG: ,PAIN: ,GCS: , 10:41,Call Received 10:41,Psap Call 10:46,Dispatched 10:46,En Route 10:56,On Scene 10:58,At Patient 11:04,BP: 130/86 M,PULSE: 62,RR: 18 R,SPO2: 100 Ox,ETCO2: ,B,PAIN: 0,GCS: 14, 11:05,Depart Scene [address] [address] EMS Patient Care Report Name: MOHANRICKEY Room #: 430-P ADM IN M.R.#: [id number] Admission: 05/31/19 ������������������ Attend Phys: Itz Busch MD Discharge: ������������������ Date of : 34 Report #: [id number] 11:13,12-Lead ECG, 11:19,BP: 130/93 M,PULSE: 81,RR: 16 R,SPO2: 100 Ox,ETCO2: ,BG: ,PAIN: 0,GCS: , 11:25,At Destination 11:48,Call Closed Disclaimer v1.1 Copyright 2019 [employer] This EMS Care Summary contains data elements from the applicable legal record (which may be displayed differently). It is designed to provide pertinent information for the following purposes: continuity of care, clinical quality, and state data reporting. The complete legal record is available to ED staff and administrators of the receiving hospital in [employer] Patient Tracker. All data is provided "as is."
[2019-05-31 11:32] VITALS: BP 115/68
[2019-05-31] MEDS ORDERED: VENTOLIN HFA 1818 GM INH (11:42)
[2019-05-31] MEDS ORDERED: TELMISARTAN20 MG PO (11:43)
[2019-05-31] MEDS ORDERED: PREDNISONE 5 MG5 M1 PO (11:43)
[2019-05-31] MEDS ORDERED: PROTONIX40 M2 PO (11:43)
[2019-05-31 12:09] LABS: ABSOLUTE NEUTROPHILS 6.2 thou/uL (1.4-8.2); BASOPHILS 0.6 % (0.0-2.0); EOSINOPHILS 0.8 % (0.0-3.0); HEMATOCRIT 38.6 % (37.0-47.0); HEMOGLOBIN 13.2 gm/dL (12.0-15.0); LYMPHOCYTES 20.1 % (24.0-44.0); MCH 31.9 pg (26.0-34.0); MCHC 34.1 g/dL (28.0-37.0); MCV 93.5 fL (80.0-100.0); MONOCYTES 8.4 % (1.0-8.0); PLATELET COUNT 262 thou/uL (150-400); POLYS 70.1 % (36.0-66.0); RBC 4.14 mil/uL (4.20-5.00); RDW 15.3 % (10.5-14.5); WBC 8.8 thou/uL (4.0-11.0)
[2019-05-31 12:18] LABS: CALCIUM 8.4 mg/dL (8.5-10.1); POTASSIUM 3.4 mmol/L (3.5-5.1)
[2019-05-31 12:22] LABS: ALBUMIN 2.9 g/dL (3.4-5.0); TOTAL BILIRUBIN 1.1 mg/dL (<0.1-1.0); TOTAL PROTEIN 6.5 g/dL (6.4-8.2)
[2019-05-31 15:20] VITALS: BP 122/52
[2019-05-31 15:29] VITALS: BP 125/69
[2019-05-31 17:09] VITALS: BP 142/64
--- NOTE | 2019-05-31 19:22 | NUR ---
PT ARRIVED TO UNIT FROM ED AT 1630 IN STABLE CONDITION.CALL LIGHT AND BED USAGE INSTRUCTIONS GIVEN TO PT. SIGNED FALL CONTRACT AND MEDICARE PAPERS.DINNER GIVEN AND WELL TOLERATED.SLING TO RT ARM.REPORT OFF TO CARLIE CABA.
[2019-05-31 19:39] VITALS: BP 134/67
--- NOTE | 2019-06-01 02:57 | NUR ---
ASSESSMENT COMPLETED. PT IS ALERT AND ORIENTED. CAN BE FORGETFUL AND CONFUSED. SLING PRESENT TO RIGHT ARM. PT HAS BRUSING AT DIFFERENT PLACES OF HER BODY SECONDARY TO FALLS. PT HAS A SKIN TEAR TO R KNEE AND RIGHT UPPER ARM.PT IS INCONTINENT. HAD A LARGE BM THROUGH NIGHT.SHE USES 02/2L-3L/NC ALL THE TIME. SHE GETS SOA WITH EXERTION. HAS A CONGESTED COUGH-NON PRODUCTIVE.FALL PRECAUTIONS IN PLACE.WILL CONTINUE WITH POC TILL EOS.
[2019-06-01 03:56] VITALS: BP 122/87
[2019-06-01 06:21] LABS: CALCIUM 7.6 mg/dL (8.5-10.1); CREATININE 0.9 mg/dL (0.6-1.0); MAGNESIUM 1.7 mg/dL (1.8-2.4); POTASSIUM 4.2 mmol/L (3.5-5.1)
--- NOTE | 2019-06-01 07:49 | EKG ---
[address] [place] [address] ELECTROCARDIOGRAM REPORT Name: RICKEY PRESTON Room #: 430-P ADM IN M.R.#: [id number] ������������������ Admission: 05/31/19 ������������������ Attend Phys: Itz Busch MD Discharge: ������������������ Date of : 34 Report #: [id number] ����������������������������������������������������������������� [id number] THIS REPORT FOR: //name// [facility] ED Test Date: 2019-05-31 Test Time: 11:44:09 Pat Name: RICKEY PRESTON Department: Room: 430 Gender: F Cashier Receptionist: AWILDA : 1935 Requested By: Erik Ceballos Order Number: [id number] MD: Yg Ornelas Measurements Intervals [place] Rate: 87 P: 75 SD: 164 QRS: -58 QRSD: 115 T: 79 QT: 384 QTc: 462 Interpretive Statements Sinus rhythm Ventricular premature complex Left anterior fascicular block Anteroseptal infarct, old ST elevation, consider inferior injury Compared to ECG 02/20/2018 06:49:34 Ventricular premature complex(es) now present Electronically Signed On 06-01-2019 7:48:56 CDT by Yg Ornelas [email or web address] ��������������������������������������������� <ELECTRONICALLY SIGNED> ���������������������������������������� By: Yg Ornelas MD, [facility] ��������������������������������������������� 06/01/19 0748 1144 1144 Yg Ornelas MD, [facility] /EPI
[2019-06-01 08:06] VITALS: BP 127/64
--- NOTE | 2019-06-01 14:22 | NUR ---
Case opened to follow for dc planning. Pt admitted from home after a fall and resulting rt humeral fx. PT/OT evals pending. Pt seen by ortho and will be in an immoblizer, nonsurgical intervention. Duster Tender visited with the pt at bedside and her spouse Meek via phone. He drives and will be in later this afternoon to visit with her. Their son lives with them in their multi level home; 4 steps in and another 4-5 to living area. The pt uses a rwalker for gait and has home o2 per provider plus. She uses 2 liters at rest and 6-8 with activity. SNF stay anticipated. SNF listing left for the pts review. She and her spouse prefer [facility] as it is directly behind their house and her spouse can walk over there. She has been there before in the past. Second choice is [facility]. DC buyer planner to fax referrals to both and check bed availability. Cm role introduced. Will follow.
--- NOTE | 2019-06-01 16:01 | NUR ---
FAXED REFERRAL TO [facility] SPOKE WITH MILAGROS IN ADM SHE RECEIVED REFERRAL AND CAN ACCEPT PT AT MO. FAXED REFERRAL TO [facility] RECEIVED CONFIRMATION. PT'S FIRST CHOICE IS [facility]. DCP TO FOLLOW.
[2019-06-01 17:35] VITALS: BP 143/56
--- NOTE | 2019-06-01 17:43 | NUR ---
RN ENTEROSTOMAL NOTIFIED BY HIGHWAY MAINTENANCE SUPERVISOR THAT PATIENT DOES NOT WISH TO COME TO ACUTE REHAB AND PLAN IN PROGRESS FOR PATIENT TO DC TO [facility]. THANK YOU FOR THIS REFERRAL.
--- NOTE | 2019-06-01 19:45 | NUR ---
Assumed pt care at 7am.Pt in and out of bed with assist.Pt was up in chair for breakfast and lunch.Fair appetite.Dr Guadarrama here,no new order noted.Pt refused dinner but took few bite of alli cake.Pt was soa when transfered from chair to bed. O2 increased to 4lnc.Will continue to monitor.
[2019-06-01 20:09] VITALS: BP 107/58
[2019-06-02 04:15] VITALS: BP 94/55
[2019-06-02 05:00] VITALS: BP 94/55
--- NOTE | 2019-06-02 05:40 | NUR ---
ASSESSMENT COMPLETED.PT INCONTINET OF BLADDER,PERICARE DONE WITH EACH CHANGE.PT ON 4L/NC.PT HAD ELEVATED TEMP THIS AM, TYLENOL ADMINISTERED.PT STILL HAVE A SLING ON HER R ARM,DENIED PAIN SO FAR.PT RESTING ON HER BED AT THIS TIME.FALL PRECAUTIONS IN PLACE,CALL LIGHT WITHIN REACH.
[2019-06-02 08:15] VITALS: BP 99/60
--- NOTE | 2019-06-02 10:23 | NUR ---
[facility] snf liason here this am to visit with the pt. They have accepted the pt for a snf stay and are checking their bed availability for tomorrow and Friday. They will also let their JUICE MIXER know that the pt's spouse would like to discuss possible ltc options for the future pending the pt's progress with rehab. Ft xray noted. Pt to have off loading shoe and be WBAT. Possible dc to snf 1-2 days.
--- NOTE | 2019-06-02 10:28 | NUR ---
WOUND CONSULT; A SKIN TEAR FROM A FALL WAS IDENTIFIED TODAY TO THE RIGHT KNEE. THE WAS SIGNIFICANT BRUISING TO THE RIGHT LE WELL. THE HEELS ARE TENDER RECOMMENDATIONS; 1-FLOAT HEELS ON PILLOWS. 2-APPLY XEROFORM TO WOUND BED, COVER WITH A BOARDERED FOAM, DAILY/PRN. 3-TURN Q2 HOURS DISCUSSED WITH RN
[2019-06-02 16:48] VITALS: BP 98/50
--- NOTE | 2019-06-02 19:30 | NUR ---
Assumed pt care this am aert and oriented but can get confused. Pt does not call out on time when she needs to urinate and was incontinent through out the day. Right foot post op boot placed, strict i and o followed, supplemetns and meals ebncouraged. Turned q2, pt denies pain. No signs of distress have been verbalized or noted. POC followed. Wound care and photo endorsed to the night nurse. Plan is for placement to [facility] tomorrow.
[2019-06-02 19:35] VITALS: BP 89/48
[2019-06-03 00:16] VITALS: BP 94/43
--- NOTE | 2019-06-03 02:49 | NUR ---
ASSUMED PT CARE 1899. PT ALERT AND ORIENTED TO SELF, CONFUSED. REASSESSMENT COMPLETE, VSS. FREQUENT BED CHANGES, Q2 TURNS. DENIEWS PAIN, DENIES N/V. CALL LIGHT AND PERSONAL BELONIGNS WITHIN REACH, WILL CONTINUE POC UNTIL EOS.
[2019-06-03 03:45] VITALS: BP 96/75
[2019-06-03 07:47] VITALS: BP 89/55
[2019-06-03] MEDS ORDERED: CALCIUM 600 +1 EA13 PO (12:22)
[2019-06-03] MEDS ORDERED: COLACE 100 MG100 MG PO (12:22)
[2019-06-03] MEDS ORDERED: HYDROCODON-ACE1 EAC7 PO (12:22)
--- NOTE | 2019-06-03 15:58 | NUR ---
dp faxed dc orders to [facility], pickup 5 to 530 today, wc van 2.5 L oxygen. Laurie/kacy [facility] will call family. Dp also faxed paperwork to 4e audio visual secretary for cc.
--- NOTE | 2019-06-03 16:45 | NUR ---
PT IS TO GO TO [facility] THIS DAY. CHART COPY MADE. ORDERS TO BE FAXED. CM CALLED AND NOTIFIED PT'S SPOUSE. HE IS AWARE AND AGREEABLE. PT IS TO BE TRANSPORTED VIA [facility] BETWEEN [phone].
--- NOTE | 2019-06-03 17:37 | NUR ---
Assumed pt care at 7am.Pt in bed resting most of the time this shift. Assessment completed.vss.Pt tolerated meds and diet.Dr Guadarrama here,dc order noted.infrastructure project manager arranged for transport.Chart copy done.Watch Assembler assisted pt with packing.Spouse notified about pt dc to [facility] today at 1730 per wc van.At 1725,pt left per wc van accompanined by transporter.
== END 2019-06-03 17:18 | DRG 563 ==
LOC: ER 11:31 → 4E 12:22 → EROBS 12:22 → 4E 16:13
PROVIDERS: Emergency Medicine; Nurse Practitioner; ADMIT Internal Medicine
DX: S42.291A Other displaced fracture of upper end of right humerus, initial encounter for closed fracture (principal); E46 Unspecified protein-calorie malnutrition; Z68.1 Body mass index [BMI] 19.9 or less, adult; J44.9 Chronic obstructive pulmonary disease, unspecified; M81.0 Age-related osteoporosis without current pathological fracture; M19.90 Unspecified osteoarthritis, unspecified site; K21.9 Gastro-esophageal reflux disease without esophagitis; E55.9 Vitamin D deficiency, unspecified; S90.511A Abrasion, right ankle, initial encounter; S80.211A Abrasion, right knee, initial encounter; F03.90 Unspecified dementia, unspecified severity, without behavioral disturbance, psychotic disturbance, mood disturbance, and anxiety; S92.351A Displaced fracture of fifth metatarsal bone, right foot, initial encounter for closed fracture; Z99.81 Dependence on supplemental oxygen; Z90.49 Acquired absence of other specified parts of digestive tract; Z88.6 Allergy status to analgesic agent; Z87.891 Personal history of nicotine dependence; Z47.89 Encounter for other orthopedic aftercare; W18.39XA Other fall on same level, initial encounter; Y93.89 Activity, other specified; Y92.89 Other specified places as the place of occurrence of the external cause; Y99.8 Other external cause status
CPT/HCPCS: 10084

== ENCOUNTER 2019-10-06 13:29 | Inpatient (IN) | payer OTHER ==
[~2019-10-06] VITALS: Ht 162.6 cm; Wt 51.7 kg
[~2019-10-06 13:29] MED LIST changes: +CALCIUM 600 +1 EA13 PO; +COLACE 100 MG100 MG PO; +HYDROCODON-ACE1 EAC7 PO; +PREDNISONE 5 MG5 M1 PO; +PROTONIX40 M2 PO; +TELMISARTAN20 MG PO; +VENTOLIN HFA 1818 GM INH
[2019-10-06 13:36] VITALS: BP 114/45
[2019-10-06 14:02] LABS: BASOPHILS 0.4 % (0.0-2.0); EOSINOPHILS 0.2 % (0.0-3.0); HEMOGLOBIN 12.1 gm/dL (12.0-15.0); LYMPHOCYTES 12.2 % (24.0-44.0); MCH 30.3 pg (26.0-34.0); MCHC 33.5 g/dL (28.0-37.0); MCV 90.4 fL (80.0-100.0); MONOCYTES 6.8 % (1.0-8.0); PLATELET COUNT 234 thou/uL (150-400); POLYS 80.4 % (36.0-66.0); RBC 3.98 mil/uL (4.20-5.00); RDW 16.3 % (10.5-14.5); WBC 8.7 thou/uL (4.0-11.0)
[2019-10-06 14:15] LABS: CREATININE 1.1 mg/dL (0.6-1.0); POTASSIUM 4.6 mmol/L (3.5-5.1)
[2019-10-06 16:07] LABS: URINE BILIRUBIN NEGATIVE (Negative); URINE BLOOD NEGATIVE (Negative); URINE CLARITY CLOUDY; URINE COLOR YELLOW; URINE GLUCOSE-RANDOM* NEGATIVE (Negative); URINE KETONES NEGATIVE (Negative); URINE LEUKOCYTES-REFLEX NEGATIVE (Negative); URINE NITRITE-REFLEX NEGATIVE (Negative); URINE PROTEIN (DIPSTICK) TRACE (Negative); URINE SPECIFIC GRAVITY 1.025 (1.005-1.035); URINE UROBILINOGEN 0.2 E.U./dl (0.2-1.0)
[2019-10-06 18:00] VITALS: BP 110/44
[2019-10-06 18:20] VITALS: BP 113/44
--- NOTE | 2019-10-06 23:22 | NUR ---
ASSUMED CARE OF PT AT 1900HRS. PT IS A NEW ADMIT THROUGH THE ER. PT IS ALERT BUT ONLY ORIENTED TO PERSON AND PLACE. FALL PRECAUTION IN PLACE. PT WAS ABLE TO ANSWER ALL ADMISSION RELATED QUESTIONS BUT CREDIBILITY OF INFORMATION IS QUESTIONABLE. NO FAMILY MEMBER PRESENT AT THE TIME OF ADMISSION. PT WAS ORIENTED TO THE UNIT AND HER ROOM. PT IS PLEASANT AND COMPLIENT. PT IS ON 2.5L O2 VIA NC. PT IS UNABLE TO HELP COMPLETE MED REC AND SIGN CONSENTS DUE TO THE DISORIENTATION. WILL CONTINUE TO MONITOR.
[2019-10-07 00:06] VITALS: BP 133/53
[2019-10-07 05:55] LABS: ABSOLUTE NEUTROPHILS 5.2 thou/uL (1.4-8.2); BASOPHILS 0.3 % (0.0-2.0); EOSINOPHILS 0.3 % (0.0-3.0); HEMATOCRIT 31.9 % (37.0-47.0); HEMOGLOBIN 10.6 gm/dL (12.0-15.0); LYMPHOCYTES 16.3 % (24.0-44.0); MCHC 33.1 g/dL (28.0-37.0); MCV 90.5 fL (80.0-100.0); MONOCYTES 8.4 % (1.0-8.0); PLATELET COUNT 204 thou/uL (150-400); POLYS 74.7 % (36.0-66.0); RBC 3.52 mil/uL (4.20-5.00); RDW 16.2 % (10.5-14.5)
[2019-10-07 06:11] LABS: CALCIUM 8.5 mg/dL (8.5-10.1); CREATININE 1.4 mg/dL (0.6-1.0); POTASSIUM 4.5 mmol/L (3.5-5.1)
[2019-10-07 08:22] VITALS: BP 140/55
[2019-10-07 11:59] VITALS: BP 135/57
[2019-10-07 12:00] VITALS: BP 135/57
--- NOTE | 2019-10-07 12:31 | NUR ---
PATIENT REFERRAL FAXED TO HOSPICE FOR RESUMPTION OF HOSPICE SERVICES. ANTICIPATED DISCHARGE TODAY OR TOMORROW. BRIE OVEN DRIER TENDER NOTIFIED.
[2019-10-07 14:49] VITALS: BP 135/57
--- NOTE | 2019-10-07 15:00 | NUR ---
Case opened to follow for ar planning support. The pt was admited from home after a fall resulting in a lt arm fracture. Gas Turbine Powerplant Mechanic Helper visited with the pt and her spouse at bedside along with a aluminum molding machine operator liason. The pt was on service with them prior to admission for approx one month. She revoked services to come in to be evaluated. The pt and spouse are wanting to return home with resumption of hospice services. They are in agreement that they need more support to help care for the pt and provide a safe enivornment. The pt has dementia and is very forgetful. They have a multi level home with 13 steps up to the main living area. The pt has home o2 in place as well as a rwalker and w/c. They are agreeable to a hospital bed and bsc being delievered today. They prefer private duty vs [facility] care placement due to the cost. Their adult son lives there as well but is disabled. He is able to help with some supervision. The pt's spouse provides for all of the homemaker services, errands, meal prep and med mngt. He is feeling fatigued and therefore agreeable to private duty referrals. Gas Turbine Powerplant Mechanic Helper contacted several agencies. Referral given to [facility] as they are able to meet with the pt's spouse today and start making arrangements with him for start of care this weekend. They are discussing an 8 hr daytime shift as the pt does well over night and usually sleeps through. Gas Turbine Powerplant Mechanic Helper also spoke with the PRINT PRESS OPERATOR at [facility],[place]. She will f/u with them on Friday to see if they need a meat stocker assigned as well as possible respite stay pending the private duty arrangements. Hospice referral faxed per the ar manufacturing planner. Transport arranged per [facility] and vouchered per cm for 2pm pickup tomorrow with o2. Pt's spouse and son will be waiting at home to help get her in the house and the hospice nurse will come about the same time for readmission. Pt/spouse aware that the pt is not to be left unattended and should not be walking without assist. Care team and the attending updated. LTC options and finances discussed as a plan B. Will follow and fax orders to [facility] at ar [phone]. Hospice will be increasing her bathaid to 3xwkly and her RN visits to 3xwkly as well.
--- NOTE | 2019-10-07 19:43 | NUR ---
Assumed pt care this am. VS have been stable. Pt is alert to self but pleasant. Incontinent of both bowel and bladder. Immobilizer kept in place on the left arm. Pt denies any pain. POC followed, no signs or verbalizations of distress have been noted. Endorsed to the night nurse.
[2019-10-07 19:45] VITALS: BP 135/50
--- NOTE | 2019-10-08 05:40 | NUR ---
Pt. rested quietly during the night when checked on during frequent rounds. Incontinent of urine and lulú care given during the shift. Left arm immobilizer in place. Pt. offers no complaints of pain. Bed alarm is on.
[2019-10-08 07:20] VITALS: BP 128/73
--- NOTE | 2019-10-08 12:29 | NUR ---
met with patient, sp with spouse. Sp with Hospice. Patient to dc home with hospice. Hospice to meet patient at home at 1400. Patient to be transported by [facility] transport at 1315 to home. Sp with spouse who is agreeable to plan. he plans to meet Fred pvt dty at his home later today to discuss further pvt dty. Updated RN.
--- NOTE | 2019-10-08 13:38 | NUR ---
Assumed pt care this am, VS stable. Left arn immobilizer in place. Asistance in meal set up done, diet is well tolerated. Pt is only alert to self and pleasant. POC followed no signs or verbalizations of distress have been noted. Pt denies pain. IV removed, pt has been picked up and now DC. DC instructiions given to the pt familya has been informed.
--- NOTE | 2019-10-08 15:11 | NUR ---
FAXED DC ORDERS/SUMMARY TO HOSPICE RECEIVED CONFIRMATION.
== END 2019-10-08 13:47 | disposition hospice, home (50) | DRG 562 ==
LOC: ER 13:29 → EROBS 15:50 → 4W 15:50
PROVIDERS: Emergency Medicine; Nurse Practitioner; ADMIT Hospitalist
DX: S62.102A Fracture of unspecified carpal bone, left wrist, initial encounter for closed fracture (principal); E43 Unspecified severe protein-calorie malnutrition; S42.292A Other displaced fracture of upper end of left humerus, initial encounter for closed fracture; N17.9 Acute kidney failure, unspecified; M80.022A Age-related osteoporosis with current pathological fracture, left humerus, initial encounter for fracture; Z68.1 Body mass index [BMI] 19.9 or less, adult; J96.11 Chronic respiratory failure with hypoxia; W18.39XA Other fall on same level, initial encounter; Z51.5 Encounter for palliative care; J44.9 Chronic obstructive pulmonary disease, unspecified; K21.9 Gastro-esophageal reflux disease without esophagitis; S70.02XA Contusion of left hip, initial encounter; F03.90 Unspecified dementia, unspecified severity, without behavioral disturbance, psychotic disturbance, mood disturbance, and anxiety; N18.9 Chronic kidney disease, unspecified; I12.9 Hypertensive chronic kidney disease with stage 1 through stage 4 chronic kidney disease, or unspecified chronic kidney disease; M19.90 Unspecified osteoarthritis, unspecified site; Z66 Do not resuscitate; R13.10 Dysphagia, unspecified; K59.03 Drug induced constipation; T40.605A Adverse effect of unspecified narcotics, initial encounter; Y93.89 Activity, other specified; R29.6 Repeated falls; Y92.89 Other specified places as the place of occurrence of the external cause; Z99.81 Dependence on supplemental oxygen; Y99.8 Other external cause status; Z90.89 Acquired absence of other organs; Z87.891 Personal history of nicotine dependence; Z88.5 Allergy status to narcotic agent; Z79.891 Long term (current) use of opiate analgesic; Z79.899 Other long term (current) drug therapy
CPT/HCPCS: 10040; 10045